=== PATIENT | male | born 1955 | race Caucasian/White ===

== ENCOUNTER 2024-10-02 08:42 | Outpatient (CLI) | payer MEDICARE ==
[2024-10-02] MEDS ORDERED: iohexol 300mg/ml 100ml inj. ONE (09:09)
== END 2024-10-02 23:59 | disposition home or self-care (01) ==
LOC: RAD 08:42
PROVIDERS: ATTEND Family Medicine
DX: K76.0 Fatty (change of) liver, not elsewhere classified (principal); R10.9 Unspecified abdominal pain
CPT/HCPCS: 74178; Q9967